=== PATIENT | male | born 1945 | race Caucasian/White ===

== ENCOUNTER 2017-07-16 21:56 | Emergency (ER) | payer MEDICARE, MEDICAID ==
[2017-07-16 22:19] VITALS: O2SAT 97
[2017-07-16] MEDS ORDERED: MORPHINE SULFATE INJ 10 MG/ML VIAL IM ONE (22:24)
[2017-07-16] MEDS ORDERED: PROMETHAZINE HCL INJ 25 MG/ML VIAL IM ONE (22:24)
--- NOTE | 2017-07-16 22:36 | ED.PDOC ---
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 HE HAS AN APPOINTMENT WITH HIS ONCOLOGIST TOMORROW HE HAS HISTORY OF CONSTIPATION FROM NARCOTICS THAT HE TAKES FOR CANCER PAIN HAS BEEN PASSING FLATUS - History of Present Illness Abdominal Pain Onset Location: [facility] Pain Radiation: no radiation Quality: moderate Timing/Duration: days Improving Factors: nothing Worsening Factors: nothing Associated Symptoms: denies symptoms Review of Systems - Review of Systems Constitutional: States: see HPI EENTM: States: no symptoms reported Respiratory: States: no symptoms reported Cardiology: States: no symptoms reported Gastrointestinal/Abdominal: States: see HPI Genitourinary: States: no symptoms reported Musculoskeletal: States: no symptoms reported Skin: States: no symptoms reported Neurological: States: no symptoms reported Endocrine: States: no symptoms reported Hematologic/Lymphatic: States: no symptoms reported Past Medical History (General) - Patient Medical History Hx Cardiac Disorders: Yes Hx Hypertension: Yes Hx Cancer: Yes - liver Surgical History: cholecystectomy - Vaccination History Hx Influenza Vaccination: Yes Hx Pneumococcal Vaccination: Yes Immunizations Up to Date: Yes - Social History Hx Tobacco Use: Yes Hx Alcohol Use: Yes Family Medical History - Family History Father Family History: Unknown Living Status: Unknown Physical Exam - Physical Exam General Appearance: Alert, Anxious Eyes, Ears, Nose, Throat Exam: PERRL/EOMI, normal ENT inspection, TMs normal Neck: non-tender, full range of motion, supple Respiratory: chest non-tender, lungs clear, normal breath sounds Cardiovascular/Chest: normal peripheral pulses, regular rate, rhythm, no edema, no gallop Gastrointestinal/Abdominal: normal bowel sounds, no organomegaly, no pulsatile mass - TENDER OVER THE RUQ NO GAURDING NO REBOUND BS NORMAL, tenderness Departure - Departure Clinical Impression: Abdominal pain, Cholangiocarcinoma Time of Disposition: 22:38 Disposition: Discharge to Home or Self Care Condition: Fair Departure Forms: ED Discharge - Pt. Copy, Patient Portal Self Enrollment Diet: resume usual diet Referrals: Billy Munoz MD [Primary Care Provider] - 1-2 Weeks Home Medications: Ambulatory Orders Aspirin [Aspirin Adult Low Dose] 81 mg PO DAILY 12/20/15 Atorvastatin Calcium [Lipitor] 10 mg PO DAILY 12/20/15 Metoprolol Tartrate 100 mg PO BID 12/20/15 HYDROcodone 10MG/APAP 325MG [[place] ] 1 ea PO 07/16/17
[2017-07-16 22:48] VITALS: BP 131/90; TEMP 98.9
== END 2017-07-16 22:56 | disposition home or self-care (01) ==
LOC: ER 21:56
DX: C22.1 Intrahepatic bile duct carcinoma (principal); I10 Essential (primary) hypertension; Z87.891 Personal history of nicotine dependence
CPT/HCPCS: J2270; J2550

== ENCOUNTER 2017-08-01 19:28 | Emergency (ER) | payer MEDICARE, MEDICAID ==
[2017-08-01 20:04] VITALS: BP 96/56; TEMP 98.1; O2SAT 99
--- NOTE | 2017-08-01 20:20 | ED.PDOC ---
History of Present Illness - General Chief Complaint: General Stated Complaint: hemorrhoids, constipation Time Seen by Provider: 08/01/17 19:49 Source: patient Exam Limitations: no limitations - History of Present Illness Initial Comments: Jacinto Martinez 72 y/o male came to ER after he felt several non painful soft swelling on his anal area.Had history of cholangiocarcinoma and undergoing chemotherapy and taking opiod pain pills causing him to be constipated everyday. Timing/Duration: other - 4 weeks Severity: moderate Improving Factors: nothing Worsening Factors: other - see hpi Allergies/Adverse Reactions: Allergies NO KNOWN ALLERGY Allergy (Verified 08/01/17 20:04) Home Medications: Ambulatory Orders Aspirin [Aspirin Adult Low Dose] 81 mg PO DAILY 12/20/15 Atorvastatin Calcium [Lipitor] 10 mg PO DAILY 12/20/15 Metoprolol Tartrate 100 mg PO BID 12/20/15 Morphine Sulfate 30 mg PO Q8HRS 08/01/17 Review of Systems - Review of Systems Constitutional: States: no symptoms reported EENTM: States: no symptoms reported Respiratory: States: no symptoms reported Cardiology: States: no symptoms reported Gastrointestinal/Abdominal: States: see HPI All other Systems: Reviewed and Negative, No Change from Baseline Past Medical History (General) - Patient Medical History Hx Seizures: No Hx Stroke: No Hx Dementia: No Hx Asthma: No Hx of COPD: No Hx Cardiac Disorders: Yes Hx Congestive Heart Failure: No Hx Pacemaker: No Hx Hypertension: Yes Hx Thyroid Disease: No Hx Diabetes: No Hx Gastroesophageal Reflux: No Hx Renal Disease: No Hx Cancer: Yes - liver Hx of HIV: No Hx MRSA: No Surgical History: cholecystectomy, other - cardiac stent - Vaccination History Hx Influenza Vaccination: Yes Hx Pneumococcal Vaccination: Yes - Social History Hx Tobacco Use: Yes Hx Alcohol Use: Yes Family Medical History - Family History Father Family History: No Known Living Status: Unknown Physical Exam - Physical Exam General Appearance: Alert, Comfortable, No apparent distress Eye Exam: bilateral normal Ears, Nose, Throat: hearing grossly normal, normal ENT inspection Neck: supple Respiratory: lungs clear, normal breath sounds Cardiovascular/Chest: normal peripheral pulses, regular rate, rhythm, no murmur Peripheral Pulses: radial,right: 2+, radial,left: 2+ Gastrointestinal/Abdominal: non tender, soft, hepatomegaly Rectal Exam: hemorrhoids - prolapsed external hemorrhoids Back Exam: no CVA tenderness, no vertebral tenderness Extremity: non-tender, no pedal edema, no calf tenderness Skin Exam: normal color, warm/dry Progress - Progress Progress: 08/01/17 20:26 Vital Signs - 8 hr 08/01/17 19:44 Temperature 98.1 F Pulse Rate [ 116 H monitor] Respiratory 16 Rate Blood Pressure 96/56 [Right Arm] O2 Sat by Pulse 99 Oximetry Departure - Departure Clinical Impression: Prolapsed external hemorrhoids Time of Disposition: 20:26 Disposition: Discharge to Home or Self Care Condition: Fair Departure Forms: ED Discharge - Pt. Copy, Patient Portal Self Enrollment Instructions: DI for Constipation, Coping With Constipation Related to Chemotherapy, Constipation (Alternative Therapy) Referrals: Billy Munoz MD [Primary Care Provider] - 1-2 Weeks Home Medications: Ambulatory Orders Aspirin [Aspirin Adult Low Dose] 81 mg PO DAILY 12/20/15 Atorvastatin Calcium [Lipitor] 10 mg PO DAILY 12/20/15 Metoprolol Tartrate 100 mg PO BID 12/20/15 Morphine Sulfate 30 mg PO Q8HRS 08/01/17 Additional Instructions: May use fleets enema with mineral oil as needed;Follow up with primary Md- Oncologist Dr. DIETRICH
== END 2017-08-01 20:33 | disposition home or self-care (01) ==
LOC: ER 19:28
DX: K64.8 Other hemorrhoids (principal); I10 Essential (primary) hypertension; Z85.05 Personal history of malignant neoplasm of liver; Z79.899 Other long term (current) drug therapy